=== PATIENT | male | born 1950 | race American Indian/Alaskan Native ===

== ENCOUNTER 2018-08-18 08:35 | Emergency (ER) | payer OTHER, MEDICARE ==
[2018-08-18 08:39] VITALS: BP 148/96
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
== END 2018-08-18 09:32 | disposition home or self-care (01) ==
LOC: ED 08:35
DX: M54.5 Low back pain (principal); M54.6 Pain in thoracic spine; I10 Essential (primary) hypertension; E11.9 Type 2 diabetes mellitus without complications; V89.2XXA Person injured in unspecified motor-vehicle accident, traffic, initial encounter; Y93.89 Activity, other specified; Y92.488 Other paved roadways as the place of occurrence of the external cause; Y99.8 Other external cause status
CPT/HCPCS: 99282